=== PATIENT | male | born 1975 | race Caucasian/White ===

== ENCOUNTER 2019-06-17 19:15 | Emergency (ER) | payer OTHER ==
[2019-06-17 19:19] VITALS: BP 136/98; PULSE 94; TEMP 98.2; BMI 26.6
[2019-06-17] MEDS ORDERED: DIPHTH,PERTUSS(ACELL),TET 0.5 ML DISP.SYRIN IM ONE ×2 (19:19→23:15)
--- NOTE | 2019-06-17 19:20 | PDOC ---
Rapid Medical Evaluation Time Seen by Provider: 06/17/19 19:16 Medical Evaluation: 06/17/19 19:17 I have performed a brief in-person evaluation of this patient. The patient presents with a chief complaint of: cut finger (across nail) at 10 am with a "lawn machine" Pertinent physical exam findings: deferred I have ordered the following: x-ray, tdap The patient will proceed to the ED for further evaluation. Discharge Disposition - Diagnosis Laceration - Referrals - Patient Instructions - Post Discharge Activity
[2019-06-17] MEDS ORDERED: IBUPROFEN 400 MG TABLET (FP) PO ONE (20:21)
[2019-06-17] MEDS ORDERED: CEFAZOLIN 1 GM/D5W 1 GM/50 ML BAG IVPB ONE (20:26)
--- NOTE | 2019-06-17 20:36 | PDOC ---
*Physical Exam - Vital Signs Last Vital Signs Temp Pulse Resp BP Pulse Ox 98.2 F 94 H 18 136/98 96 06/17/19 19:18 06/17/19 19:18 06/17/19 19:18 06/17/19 19:18 06/17/19 19:18 - Physical Exam Comments: 06/17/19 20:33 L hand finger with lac through the nailbed, no arterial bleeding, oozing brb ttp sensation intact also dony fx on xray will start iv abx will give tetanus will discuss with hand Medical Decision Making - Medical Decision Making 06/17/19 20:35 no hand controls designer at [facility] will call [facility] agree with PA findings and h&p 06/17/19 21:44 hand surgeon recommends nail bed repair and splint and outpt follow up with abx 06/18/19 00:03 lac has been repaired by the provider stable for dc to home Discharge - Discharge Information Problems reviewed: Yes Clinical Impression/Diagnosis: Laceration Open fracture of finger Qualifiers: Encounter type: initial encounter Finger: ring finger Phalanx: distal Fracture alignment: nondisplaced Laterality: left Qualified Code(s): S62.665B - Nondisplaced fracture of distal phalanx of left ring finger, initial encounter for open fracture Condition: Stable Disposition: HOME - Additional Discharge Information Prescriptions: Cephalexin Monohydrate [Keflex -] 500 mg PO Q8H #21 capsule - Follow up/Referral Referrals: Peewee Concepcion MD [Staff Physician] - 2 Days - Patient Discharge Instructions Patient Printed Discharge Instructions: DI for Laceration Repair Additional Instructions: Thank you for choosing [facility]. It was a pleasure taking care of you. Please keep site of injury clean and dry for the next 24 hours You may can then gently clean around the site with soap and water Please take the antibiotics as prescribed You referred to a hand doctor for further evaluation. You will need to have the stitches taken out in 7 to 10 days Please keep the splint on as you also have fracture Return to the Emergency Department if your symptoms worsen or persist, you have fever, swelling, purulent drainage, redness, streaking or other concerning symptoms. - Post Discharge Activity
[2019-06-17] MEDS ORDERED: CEFAZOLIN 1 GM/D5W 1 GM/50 ML BAG ONE (23:07)
[2019-06-17] MEDS ORDERED: IBUPROFEN 600 MG TABLET (FP) PO ONE (23:08)
--- NOTE | 2019-06-17 23:44 | PDOC ---
History of Present Illness - General Chief Complaint: Laceration Stated Complaint: LAC/LT FINGER Time Seen by Provider: 06/17/19 19:16 History Source: Patient Exam Limitations: No Limitations Past History - Past Medical History Allergies/Adverse Reactions: Allergies Allergy/AdvReac Type Severity Reaction Status Date / Time No Known Allergies Allergy Verified 06/17/19 19:19 Home Medications: Ambulatory Orders Cephalexin Monohydrate [Keflex -] 500 mg PO Q8H #21 capsule 06/17/19 COPD: No - Psycho Social/Smoking Cessation Hx Smoking History: Never smoked *Physical Exam - Vital Signs Last Vital Signs Temp Pulse Resp BP Pulse Ox 98.2 F 94 H 18 136/98 96 06/17/19 19:18 06/17/19 19:18 06/17/19 19:18 06/17/19 19:18 06/17/19 19:18 - Physical Exam General Appearance: No: Apparent Distress Extremity: positive: Other (nailbed avulsion of L 4th digit, small skin tear along palmar aspect of L distal digit as well, no other evidence of trauma noted ) Integumentary: negative: Ecchymosis, Bruising Neurologic: positive: Alert, Normal Mood/Affect Procedures - Laceration/Wound Repair Left 4th digit Wound Length: to 2.5 cm Wound Explored: clean Wound's Depth, Shape: nail-avulsed Irrigated w/ Saline: Yes Betadine Prep: Yes Anesthesia: 1% Lidocaine Wound Debrided: moderate Wound Repaired With: Sutures Suture Size/Type: 5:0, nylon Number of Sutures: 3 Layer Closure: Yes Deep Layer Suture Size/Type: 4:0, chromic Number of Deep Layer Sutures: 4 Splint Applied: Yes Type of Splint Applied: finger splint ED Treatment Course - Medications Given in the ED: ED Medications Discontinued Medications Generic Name Dose Route Start Last Admin Trade Name Freq PRN Reason Stop Dose Admin Diphtheria/Tetanus/Acell Pertussis 0.5 ml 06/17/19 19:19 06/17/19 23:16 Boostrix - IM 06/17/19 19:20 0.5 ml .ONCE ONE Administration Cefazolin Sodium 1 gm in 50 mls @ 100 mls/hr 06/17/19 20:26 06/17/19 23:16 Ancef 1 Gm Premixed Ivpb - IVPB 06/17/19 20:55 100 mls/hr ONCE ONE Administration Ibuprofen 800 mg 06/17/19 20:21 06/17/19 23:16 Motrin - PO 06/17/19 20:22 800 mg ONCE ONE Administration Medical Decision Making - Medical Decision Making 34-year-old male with no significant past medical history presents with injury to left ring finger from 10:00 this morning. 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 Patient is unable to recall last tetanus shot. Denies numbness, tingling, other traumas. X-ray shows tuft fracture Case was discussed with hand surgeon, Dr. Brandon from [facility] who recommended repair of nailbed and antibiotics, did not feel patient needed to be transferred at this time Please see procedure note for repair laceration Patient's nail was removed, laceration of nailbed was repaired using chromic sutures, a sterile foil was placed underneath the eponychial fold which was sutured on with nylon sutures Given ancef and tetanus Finger placed in splint will refer to hand 06/17/19 23:38 Discharge - Discharge Information Problems reviewed: Yes Clinical Impression/Diagnosis: Laceration Open fracture of finger Qualifiers: Encounter type: initial encounter Finger: ring finger Phalanx: distal Fracture alignment: nondisplaced Laterality: left Qualified Code(s): S62.665B - Nondisplaced fracture of distal phalanx of left ring finger, initial encounter for open fracture Condition: Stable Disposition: HOME - Admission No - Additional Discharge Information Prescriptions: Cephalexin Monohydrate [Keflex -] 500 mg PO Q8H #21 capsule Prescription Drug Monitoring Program (I-STOP) results: I-STOP not reviewed - Follow up/Referral Referrals: Peewee Concepcion MD [Staff Physician] - 2 Days - Patient Discharge Instructions Patient Printed Discharge Instructions: DI for Laceration Repair Additional Instructions: Thank you for choosing [facility]. It was a pleasure taking care of you. Please keep site of injury clean and dry for the next 24 hours You may can then gently clean around the site with soap and water Please take the antibiotics as prescribed You referred to a hand doctor for further evaluation. You will need to have the stitches taken out in 7 to 10 days Please keep the splint on as you also have fracture Return to the Emergency Department if your symptoms worsen or persist, you have fever, swelling, purulent drainage, redness, streaking or other concerning symptoms. - Post Discharge Activity
== END 2019-06-18 00:09 | disposition home or self-care (01) ==
LOC: JER 19:15 → JERFT 19:15 → JER 06-18 00:09
PROC: 3E03329 Introduction of Other Anti-infective into Peripheral Vein, Percutaneous Approach (ICD-10-PCS; principal; 2019-06-17)
PROC: 3E0234Z Introduction of Serum, Toxoid and Vaccine into Muscle, Percutaneous Approach (ICD-10-PCS; 2019-06-17)
PROC: 0JQK0ZZ Repair Left Hand Subcutaneous Tissue and Fascia, Open Approach (ICD-10-PCS; 2019-06-17)
PROC: 0HQQXZZ Repair Finger Nail, External Approach (ICD-10-PCS; 2019-06-17)
PROC: 2W3KX1Z Immobilization of Left Finger using Splint (ICD-10-PCS; 2019-06-17)
DX: S62.665B Nondisplaced fracture of distal phalanx of left ring finger, initial encounter for open fracture (principal); S61.315A Laceration without foreign body of left ring finger with damage to nail, initial encounter; W28.XXXA Contact with powered lawn mower, initial encounter; Y93.89 Activity, other specified; Y92.89 Other specified places as the place of occurrence of the external cause; Y99.8 Other external cause status
CPT/HCPCS: 73140-TC-LT-FY; 90715; 99283-25